=== PATIENT | female | born 1990 | race Caucasian/White ===

== ENCOUNTER 2023-09-20 02:25 | Emergency (ER) | payer MEDICAID ==
[~2023-09-20] VITALS: Ht 175.3 cm; Wt 81.0 kg
[2023-09-20 02:34] VITALS: BP 132/82; PULSE 97; RESP 16; TEMP 98.4; O2SAT 98
== END 2023-09-20 05:42 | disposition left against medical advice (07) ==
LOC: ER 02:25
DX: H57.89 Other specified disorders of eye and adnexa (principal); Z53.21 Procedure and treatment not carried out due to patient leaving prior to being seen by health care provider